=== PATIENT | female | born 1990 | race Two or more races ===

== ENCOUNTER 2022-06-22 16:35 | Emergency (ER) | payer MEDICAID ==
[~2022-06-22] VITALS: Ht 154.9 cm; Wt 59.0 kg
[2022-06-22 17:13] LABS: CREATININE 0.7 mg/dL (0.6-1.3); POTASSIUM 3.7 mmol/L (3.5-5.1)
[2022-06-22 17:19] LABS: BILIRUBIN,DIRECT 0.1 mg/dL (0.0-0.2); BILIRUBIN,TOTAL 0.7 mg/dL (0.2-1.0); TOTAL PROTEIN, SERUM 7.5 g/dL (6.4-8.2)
[2022-06-22] MEDS: IV NORMAL SALINE 1000 ML BAG IV ONE (17:20)
[2022-06-22] MEDS ORDERED: ACETAMINOPHEN ES 500 MG TABLET ONE (17:21)
[2022-06-22] MEDS: ACETAMINOPHEN ES 500 MG TABLET PO ONE (17:24)
[2022-06-22 17:28] LABS: MEAN CORPUSCULAR HEMOGLOBIN 25.7 uug (24.7-32.8); MEAN CORPUSCULAR VOLUME 80.4 fL (75.5-95.3); PLATELET COUNT (AUTO) 283 K/uL (179-408)
[2022-06-22 18:54] LABS: *BILIRUBIN,URIN NEGATIVE (NEGATIVE); *BLOOD, URINE NEGATIVE (NEGATIVE); *CLARITY,URINE CLEAR (CLEAR); *COLOR,URINE YELLOW (YELLOW); *KETONES,URINE NEGATIVE (NEGATIVE); *UROBILINOGEN,URINE 0.2 E.U./dl (NORMAL); LEUKOCYTE ESTERASE ,URINE 1+ (NEGATIVE); NITRITE, URINE NEGATIVE (NEGATIVE); PH,URINE 7.5 (5.0-8.0); UGLUCOSE NEGATIVE (NEGATIVE)
[2022-06-22 18:57] LABS: *URINE HCG, QUAL POSITIVE (NEGATIVE)
--- NOTE | 2022-06-22 19:37 | NUR ---
Patient discharged to home in stable condition. Written and verbal after care instructions given. Patient verbalizes understanding of instructions. Stressed follow up or return to ER for worsening s/s. Patient out of ER with steady gait, no acute signs of distress, VSS, all belongings taken, IV site discontinued, provided with copies of lab and ultrasound results.
[2022-06-22 19:38] VITALS: BP 101/67
[2022-06-22 19:59] LABS: RBC,URINE NONE SEEN /HPF (0-3); SQUAMOUS EPITHELIAL CELL,UR MANY /HPF (NONE SEEN)
[2022-06-22 20:00] LABS: BACTERIA,URINE FEW /HPF (NONE SEEN)
== END 2022-06-22 19:39 | disposition home or self-care (01) ==
LOC: ER 16:53
DX: O9A.211 Injury, poisoning and certain other consequences of external causes complicating pregnancy, first trimester (principal); S10.91XA Abrasion of unspecified part of neck, initial encounter; S20.311A Abrasion of right front wall of thorax, initial encounter; S30.811A Abrasion of abdominal wall, initial encounter; Z3A.12 12 weeks gestation of pregnancy; V43.62XA Car passenger injured in collision with other type car in traffic accident, initial encounter; Y92.414 Local residential or business street as the place of occurrence of the external cause; O99.011 Anemia complicating pregnancy, first trimester
CPT/HCPCS: 99285; 76700; 96360; 71045; 96361; 80076; 80048; 81001; 84703; 85025; 85730; 86850; 86900; 86901; 36415; 93005; 76856; 87040; J7040; A4663; A9150